=== PATIENT | female | born 1945 | race Caucasian/White ===

== ENCOUNTER 2024-07-12 12:01 | Emergency (ER) | payer SELFPAY ==
[2024-07-12 12:02] VITALS: BP 148/71; PULSE 78; RESP 16; TEMP 36.4; O2SAT 98; BMI 23.0
--- NOTE | 2024-07-12 13:27 | EX.ED.DYSGE1 ---
HPI History of Present Illness Chief Complaint: Med Refill Detail of Chief Complaint: Needs medication that was left on luggage that was lost Informant: patient and spouse/S.O. Onset/Context/Timing Onset: Today Narrative Narrative: Patient is a 79-year-old Italian-speaking patient. 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 She needs 3 of her medications refilled. She has no complaints otherwise. Prior similar symptoms: No Recent Illness/Hospitalization: No PFSH PFSH Medical History (Updated 07/12/24 @ 13:[address] Doyle Nava MD) Hypertension Medical History unable to obtain Home Medications ?Medication ?Instructions ?Recorded ?Last Taken ?Type lisinopril 10 1 tab PO DAILY #14 tabs 07/12/24 Unknown Rx mg-hydrochlorothiazide 12.5 mg tablet metoprolol succinate 25 mg 25 mg PO DAILY #14 tabs 07/12/24 Unknown Rx tablet,extended release 24 hr (Toprol XL) spironolactone 50 mg tablet 75 mg (1.5 x 50 mg) PO DAILY #21 07/12/24 Unknown Rx (Aldactone) tabs Allergy/AdvReac Type Severity Reaction Status Date / Time No Known Allergies Allergy Verified 07/12/24 12:04 Surgical History unable to obtain Social History (Updated 07/12/24 @ 13:[address] Doyle Nava MD) household members: spouse Smoking Status: Never smoker ROS ROS ED Eyes Eyes: Denies blurry vision or change in vision Cardiovascular Cardiovascular: Denies chest pain Respiratory/Chest Respiratory/Chest: Denies dyspnea EXAM Physical Exam Const Vital Signs: 07/12/24 12:02 07/12/24 12:02 Temperature 97.6 F L Temperature Source Temporal Pulse Rate 78 Respiratory Rate 16 Respiratory Effort Normal Respiratory Pattern Normal Blood Pressure 148/71 H Blood Pressure Mean 96 Pulse Ox 98 Oxygen Delivery Method Room Air Positive well nourished and well developed General Appearance ED: well developed and NAD HEENT Reports moist mucous membranes HEENT Narrative: Atraumatic normocephalic. Ears normal. Eyes PERRL and EOMs intact bilaterally General Eye ED: Negative for scleral icterus Chest Wall inspection of chest normal Cardio regular rate and regular rhythm Extremity normal to inspection Neuro oriented x3 and CN's II-XII intact bilaterally Sensorium / Orientation: alert Psych mental status grossly normal Skin no rashes or lesions noted and no wounds MDM MDM MDM Narrative Medical decision making narrative: Prescription refilled. Discharge Plan Triage Chief Complaint: Med Refill ED Provider: Doyle Nava Dx/Rx/DC Orders Clinical Impression: Encounter for medical screening examination, Medication refill Instructions: ED Screening Exam Medical Nonurgent Prescriptions: New metoprolol succinate [Toprol XL] 25 mg tablet extended release 24 hr 25 mg PO DAILY Qty: 14 0RF lisinopril-hydrochlorothiazide 10-12.5 mg tablet 1 tab PO DAILY Qty: 14 0RF spironolactone [Aldactone] 50 mg tablet 75 mg PO DAILY Qty: 21 0RF Primary Care Provider: [facility] Doctor,Out of Referrals: [facility] Doctor,Out of [Primary Care Provider] - Print Language: Italian Disposition Disposition: Home, Self Care
== END 2024-07-12 13:50 | disposition home or self-care (01) ==
PROVIDERS: Emergency Provider Emergency Medicine; Referring Provider Emergency Medicine; Visit Provider Emergency Medicine
DX: Z76.0 Encounter for issue of repeat prescription (principal); I10 Essential (primary) hypertension
CPT/HCPCS: 99282